=== PATIENT | male | born 1950 | race Caucasian/White ===

== ENCOUNTER 2018-04-24 12:29 | Emergency (ER) | payer MEDICARE, OTHER ==
[~2018-04-24] VITALS: Ht 182.9 cm; Wt 90.9 kg
[2018-04-24] MEDS ORDERED: ATOR1TAB21 PO (12:50)
[2018-04-24] MEDS ORDERED: METO37.5 PO (12:50)
[2018-04-24] MEDS ORDERED: CLOP75TA2 PO (12:50)
[2018-04-24] MEDS ORDERED: ASPI81CH PO (12:50)
[2018-04-24] MEDS ORDERED: NITR0.4S14 SL (12:50)
[2018-04-24 13:03] LABS: EOS % 1.6 % (0.0-3.0); HEMATOCRIT 47.5 % (42.0-52.0); HEMOGLOBIN 15.6 g/dl (13.5-17.5); LYMPH % 19.4 % (24.0-44.0); MEAN CORPUSCULAR HEMOGLOBIN 30.1 pg (27.0-33.0); MEAN CORPUSCULAR HGB CONC 32.8 g/dl (32.0-36.5); MEAN CORPUSCULAR VOLUME 91.7 fl (80.0-96.0); MONO % 9.2 % (0.0-5.0); NEUTROPHILS % 69.1 % (36.0-66.0); PLATELET COUNT, AUTOMATED 291 10^3/uL (150-450); RED BLOOD COUNT 5.18 10^6/uL (4.30-6.10); WHITE BLOOD COUNT 10.8 10^3/uL (4.0-10.0)
[2018-04-24 13:04] LABS: BASO % 0.4 % (0.0-1.0); EOS # 0.2 10^3/uL (0.0-0.50); LYMPH # 2.1 10^3/uL (1.5-4.5); NEUTROPHILS # 7.5 10^3/uL (1.8-7.7)
[2018-04-24 13:08] LABS: PROTHROMBIN TIME 13.3 SECONDS (12.1-14.4)
--- NOTE | 2018-04-24 13:20 | REP ---
Clinical: Syncope . Comparison: None . Findings: The mediastinum and cardiac silhouette are stable and within normal limits for portable technique. The lung villareal are clear without acute consolidation, effusion, or pneumothorax. Trace left basilar fibroatelectatic changes noted. Skeletal structures are intact. Impression: Trace left basilar fibroatelectatic changes. No focal consolidation or effusion. Electronically Signed by Asa Pathak MD 04/24/2018 01:12 P
[2018-04-24 13:23] LABS: BLOOD UREA NITROGEN 14 MG/DL (7-18); CALCIUM LEVEL 8.8 MG/DL (8.8-10.2); CARBON DIOXIDE LEVEL 24 MEQ/L (21-32); CHLORIDE LEVEL 107 MEQ/L (98-107); CPK CREATINE PHOSPHOKINASE 138 U/L (39-308); CREATININE FOR GFR 1.17 MG/DL (0.70-1.30); ETHYL ALCOHOL (ETHANOL) < 0.003 % (0.000-0.010); FREE T4 1.09 NG/DL (0.76-1.46); GLOMERULAR FILTRATION RATE > 60.0 (>49); GLUCOSE, FASTING 129 MG/DL (70-100); MAGNESIUM LEVEL 2.1 MG/DL (1.8-2.4); MB/CK RELATIVE INDEX 2.83 (< OR =4); POTASSIUM SERUM 4.3 MEQ/L (3.5-5.1); SODIUM LEVEL 140 MEQ/L (136-145); THYROID STIMULATING HORMONE 0.919 uIU/ML (0.358-3.740); TROPONIN I < 0.02 NG/ML (< 0.10)
[2018-04-24 14:32] LABS: AMPHETAMINES LEVEL URINE NEGATIVE (NEGATIVE); BARBITURATES URINE NEGATIVE (NEGATIVE); BENZODIAZEPINES URINE NEGATIVE (NEGATIVE); CANNABINOIDS URINE POSITIVE (NEGATIVE); COCAINE METABOLITE URINE NEGATIVE (NEGATIVE); METHADONE URINE NEGATIVE (NEGATIVE); OPIATES URINE NEGATIVE (NEGATIVE); PHENCYCLIDINE URINE NEGATIVE (NEGATIVE)
--- NOTE | 2018-04-24 14:48 | REP ---
Clinical: Syncope . Comparison: None . Findings: The ventricles, sulci, and cisterns are normal in position and appearance. Rowland-white differentiation is maintained. No acute intracranial hemorrhage, mass/mass effect, pathology or trauma/injury. No evidence for acute infarction. No extra-axial fluid collection. Calvarium is intact. Paranasal sinuses and mastoid air cells are clear. Impression: Normal noncontrast head CT. No evidence for acute intracranial pathology or trauma/injury. Electronically Signed by Asa Pathak MD 04/24/2018 02:40 P
[2018-04-24 16:00] VITALS: BP 131/79
== END 2018-04-24 16:12 | disposition left against medical advice (07) ==
LOC: EDBD 12:29 → M ED 12:29
DX: R55 Syncope and collapse (principal); I44.7 Left bundle-branch block, unspecified; I25.2 Old myocardial infarction; F17.200 Nicotine dependence, unspecified, uncomplicated; Z79.899 Other long term (current) drug therapy; Z79.82 Long term (current) use of aspirin; Z79.02 Long term (current) use of antithrombotics/antiplatelets
CPT/HCPCS: 36415; 70450; 71045; 80048; 80307; 82550; 82553; 83735; 84439; 84443; 84484; 85025; 85610; 85730; 87486; 87581; 87633; 87798; 93041; 94760; 99285; G0480

== ENCOUNTER 2022-09-18 09:29 | Emergency (ER) | payer MEDICARE, OTHER ==
[~2022-09-18] VITALS: Ht 182.9 cm; Wt 91.4 kg
[~2022-09-18 09:29] MED LIST: ASPI81CH49 PO; ATOR1TAB21 PO; CLOP75TA2 PO; METO37.5 PO; NITR0.4S14 SL
[2022-09-18] MEDS ORDERED: CIPROFLOXACIN 500MG TABLET PO ONE (12:20)
[2022-09-18] MEDS ORDERED: CIPR500T39 PO (12:21)
[2022-09-18] MEDS ORDERED: PHEN-372 PO (12:21)
[2022-09-18 12:28] VITALS: BP 156/75; TEMP 97.1; O2SAT 100
== END 2022-09-18 12:38 | disposition home or self-care (01) ==
LOC: M ED 09:29
DX: N30.01 Acute cystitis with hematuria (principal); I11.9 Hypertensive heart disease without heart failure; E78.5 Hyperlipidemia, unspecified; F17.200 Nicotine dependence, unspecified, uncomplicated; Z79.82 Long term (current) use of aspirin; Z79.899 Other long term (current) drug therapy